=== PATIENT | female | born 1990 | race African-American/Black ===

== ENCOUNTER 2022-04-25 14:52 | Emergency (ER) | payer MEDICAID ==
[~2022-04-25] VITALS: Ht 170.2 cm; Wt 91.0 kg
[2022-04-25 15:11] VITALS: BP 151/101
[2022-04-25] MEDS ORDERED: TETANUS, DIPHTHERIA, PERTUSSIS VAC/PF 0.5ML (>10YR OLD) IM ONE (18:30)
[2022-04-25] MEDS ORDERED: BACITRACIN ZINC OINT UDPKT TOP ONE (18:30)
[2022-04-25] MEDS ORDERED: BO1 TP (19:04)
== END 2022-04-25 19:28 | disposition home or self-care (01) ==
LOC: ER 14:52
DX: S41.112A Laceration without foreign body of left upper arm, initial encounter (principal); I10 Essential (primary) hypertension; W25.XXXA Contact with sharp glass, initial encounter; Y93.89 Activity, other specified; Y92.89 Other specified places as the place of occurrence of the external cause; Y99.8 Other external cause status
CPT/HCPCS: 12002; 90471; 90715; 99283

== ENCOUNTER 2022-05-04 14:57 | Emergency (ER) | payer MEDICAID ==
[~2022-05-04] VITALS: Ht 170.2 cm; Wt 60.0 kg
[~2022-05-04 14:57] MED LIST: BO1 TP
[2022-05-04 14:59] VITALS: BP 127/94
[2022-05-04] MEDS ORDERED: CEPH500C2 MT (16:31)
== END 2022-05-04 16:32 | disposition home or self-care (01) ==
LOC: ER 14:57
DX: Z48.02 Encounter for removal of sutures (principal); L03.114 Cellulitis of left upper limb
CPT/HCPCS: 99283